=== PATIENT | male | born 2000 | race American Indian/Alaskan Native ===

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

== ENCOUNTER 2019-11-23 15:19 | Emergency (ER) | payer SELFPAY ==
[2019-11-23 15:44] VITALS: BP 135/72
== END 2019-11-23 18:09 | disposition left against medical advice (07) ==
LOC: ED 15:19
DX: R42 Dizziness and giddiness (principal); Z53.21 Procedure and treatment not carried out due to patient leaving prior to being seen by health care provider